=== PATIENT | female | born 2000 | race Caucasian/White ===

== ENCOUNTER → 2018-07-20 | Outpatient (CLI) | payer OTHER ==
--- NOTE | 2018-07-20 09:55 | RADIOLOGY IMAGING REPORT ---
FACILITY: [facility] PATIENT NAME: April Dewitt : 2000 MR: [id number] V: [id number] EXAM DATE: ORDERING PHYSICIAN: [facility] TECHNOLOGIST: Location: [facility] Patient: April Dewitt : 2000 Visit/Account:[id number] Date of Sevice: 07/20/2018 DEXA Scan Clinical history: Hypothalamic oligomenorrhea. Comparison: None available. LUMBAR SPINE: The bone mineral density (BMD) measured from L1-L4 correlates with a Z-score -1.6 and a T-score of -1 .7 which is osteopenia as defined by the World Health Organization. The corresponding risk of fractu re in the lumbar spine is 3-4 times increased compared with a young adult reference population. HIP: Bone mineral density (BMD) measured in the Left total hip region correlates with a Z-score -1.3 and a T-score of -1.3 which is osteopenia as defined by the World Health Organization. The corresponding risk of fracture in the hip is 2-3 times increased compared with a young adult reference population. T score left femoral neck -0.7 Bone mineral density (BMD) measured in the Femoral Neck region measures 0.943 g/cm2. Impression: 1. Lumbar spine: Osteopenia. 2. Left Hip: Osteopenia. 3. Femoral Neck: Bone Mineral Density is 0.943 g/cm2 The next DEXA scan of this patient should include the following sites: L1-L4 and the left hip. FRAX? WHO Fracture Risk Assessment Tool link: <http://www.shef.ac.uk/FRAX/tool.jsp?locationValue=9> PLEASE NOTE: 1) The World Health Organization defines low BMD as follows: T-score Normal > -1 Osteopenia < -1 and > -2.5 Osteoporosis < -2.5 without fractures Established osteoporosis < -2.5 with fractures 2) In general, you may wish to consider: Diagnosis Treatment Follow-up DEXA Normal BMD Prevention 2-3 years Osteopenia Prevention/therapy 1-2 years Osteoporosis Therapy Yearly 3) Fracture risk estimated from the T-score is more accurate for vertebral fractures (often spontane ous) than for hip fractures. Report Dictated By: Whitney Cox MD at 07/20/2018 9:48 AM Report E-Signed By: Whitney Cox MD at 07/20/2018 9:50 AM WSN:[email or web address]
== END ==
LOC: RAD 09:14
PROVIDERS: ATTEND Obstetrics & Gynecology
DX: M85.89 Other specified disorders of bone density and structure, multiple sites (principal)
CPT/HCPCS: 77080